=== PATIENT | female | born 1990 | race Caucasian/White ===

== ENCOUNTER 2020-09-02 09:12 | Inpatient (IN) | payer OTHER, SELFPAY ==
[~2020-09-02] VITALS: Ht 162.6 cm; Wt 88.5 kg
[~2020-09-02 09:12] MED LIST: DINOPROSTONE 10 MG SUPP VG ONE; LR 1,000 ML IV ONE; LR 1,000 ML IV SCH; LR 500 ML IV ONE; NALBUPHINE HCL 10 MG/ML AMP IM PRN; TERBUTALINE SULFATE 1 MG/ML VIAL SUBCUT PRN
[2020-09-02] MEDS ORDERED: AMPICILLIN SODIUM 2 GM in NS 100 ML IV ONE (10:00)
[2020-09-02] MEDS ORDERED: DINOPROSTONE 10 MG SUPP VG ONE ×2 (10:47→23:00)
[2020-09-02 10:48] LABS: BASOPHILS % (AUTO) 0.3 % (0.0-2.0); EOSINOPHILS # (AUTO) 0.1 K/uL (0.0-0.4); EOSINOPHILS % (AUTO) 1.4 % (0.0-4.0); HEMATOCRIT 38.1 % (36-48); HEMOGLOBIN 12.8 g/dL (12.0-16.0); LYMPHOCYTES # (AUTO) 1.7 K/uL (1.0-5.5); LYMPHOCYTES % (AUTO) 17.9 % (20.5-51.5); MEAN CORPUSCULAR HEMOGLOBIN 29 pg (27-31); MEAN CORPUSCULAR HGB CONC 34 % (32-36); MEAN CORPUSCULAR VOLUME 88 fL (79.0-98.0); MONOCYTES # (AUTO) 0.6 K/uL (0.0-1.0); MONOCYTES % (AUTO) 6.2 % (1.7-9.3); NEUTROPHILS # (AUTO) 6.9 K/uL (1.8-7.7); NEUTROPHILS % (AUTO) 74.2 % (40.0-70.0); PLATELET COUNT (AUTO) 177 K/uL (130-430); RED BLOOD CELL COUNT(AUTO) 4.35 MIL/uL (4.2-6.2); RED CELL DISTRIBUTION WIDTH 13.6 % (9.0-15.0); WHITE BLOOD COUNT (AUTO) 9.3 K/uL (4.8-10.8)
[2020-09-02 11:56] VITALS: BP_SYST 122
[2020-09-02] MEDS ORDERED: AMPICILLIN SODIUM 1 GM in NS 50 ML IV SCH (14:00)
[2020-09-02] MEDS ORDERED: OXYTOCIN/0.9 % SODIUM CHLORIDE 1,000 ML IV SCH (22:00)
[2020-09-03] MEDS ORDERED: NALBUPHINE HCL 10 MG/ML AMP IVP PRN (02:00)
[2020-09-03] MEDS ORDERED: AMPICILLIN SODIUM 2 GM VIAL ONE (09:48)
[2020-09-03] MEDS ORDERED: fentaNYL CITRATE/PF 100 MCG/2 ML AMP ONE (11:55)
[2020-09-03] MEDS ORDERED: ROPIVACAINE HCL/PF 0.2% 200 ML ONE (11:55)
[2020-09-03] MEDS ORDERED: FENT2mCg/mL-ROPIVA0.2%/NS EPID 200 ML EP SCH (12:45)
[2020-09-03] MEDS ORDERED: DIPHENHYDRAMINE INJ 50 MG/ML VIAL IVP PRN (12:45)
[2020-09-03] MEDS ORDERED: ONDANSETRON HCL 4 MG/2 ML VIAL IVP PRN (12:45)
[2020-09-03] MEDS ORDERED: NALOXONE HCL 0.4 MG/ML AMP (NARCAN) IVP PRN (12:45)
[2020-09-03] MEDS ORDERED: DERMOPLAST SPRAY TP PRN (15:30)
[2020-09-03] MEDS ORDERED: WITCH HAZEL LEAF 1 MED.PAD MED.PAD TP PRN (15:30)
[2020-09-03] MEDS ORDERED: LANOLIN 7 GM OINT. TP PRN (15:30)
[2020-09-03] MEDS ORDERED: OXYTOCIN/0.9 % SODIUM CHLORIDE 1,000 ML IV ONE (15:30)
[2020-09-03] MEDS ORDERED: SENNOSIDES/DOCUSATE SODIUM 1 TAB TABLET(SENOKOT-S) PO PRN (15:30)
[2020-09-03] MEDS ORDERED: OXYCODONE/ACETAMINOPHEN 5-325 TABLET PO PRN ×2 (15:30)
[2020-09-03] MEDS ORDERED: ANUSOL 1 EA SUPP.RECT (PREPARATION H) RC PRN (15:30)
[2020-09-03] MEDS ORDERED: METHYLERGONOVINE MALEATE 0.2 MG TABLET PO PRN (15:30)
[2020-09-03] MEDS ORDERED: DERMOPLAST SPRAY TP ONE (16:52)
[2020-09-03] MEDS: IBUPROFEN 800 MG TABLET PO PRN ×2 (17:50→23:59)
[2020-09-03] MEDS ORDERED: TEMAZEPAM 15 MG CAPSULE PO PRN (21:00)
[2020-09-03] MEDS: DOCUSATE SODIUM 100 MG CAPSULE PO PRN (23:59)
[2020-09-04] MEDS: IBUPROFEN 800 MG TABLET PO PRN (06:30)
[2020-09-04] MEDS: DOCUSATE SODIUM 100 MG CAPSULE PO PRN (06:30)
[2020-09-04 08:16] LABS: HEMATOCRIT 38.1 % (36-48); HEMOGLOBIN 12.6 g/dL (12.0-16.0)
[2020-09-04] MEDS ORDERED: DIPH-TET-PERTUS Vaccine 0.5 ML VIAL (ADACEL) I.M. ONE (08:45)
== END 2020-09-04 17:52 | disposition home or self-care (01) | DRG 807 ==
LOC: SPU 09:12
PROVIDERS: ADMIT Obstetrics & Gynecology; ATTEND Obstetrics & Gynecology
PROC: 10D07Z6 Extraction of Products of Conception, Vacuum, Via Natural or Artificial Opening (ICD-10-PCS; principal; 2020-09-03)
PROC: 0HQ9XZZ Repair Perineum Skin, External Approach (ICD-10-PCS; 2020-09-03)
PROC: 3E0P7VZ Introduction of Hormone into Female Reproductive, Via Natural or Artificial Opening (ICD-10-PCS; 2020-09-03)
PROC: 3E0R3BZ Introduction of Anesthetic Agent into Spinal Canal, Percutaneous Approach (ICD-10-PCS; 2020-09-03)
PROC: 00HU33Z Insertion of Infusion Device into Spinal Canal, Percutaneous Approach (ICD-10-PCS; 2020-09-03)
DX: O48.0 Post-term pregnancy (principal); Z37.0 Single live birth; Z3A.41 41 weeks gestation of pregnancy; O70.0 First degree perineal laceration during delivery; Z20.822 Contact with and (suspected) exposure to COVID-19; O99.824 Streptococcus B carrier state complicating childbirth
CPT/HCPCS: 36415; 81002-TC; 85018-TC; 85025; 86592; 86886; 86900; 86901; 90715; J0290; J2300; J2590; J3010